=== PATIENT | male | born 1995 | race Caucasian/White ===

== ENCOUNTER 2018-10-23 20:49 | Emergency (ER) | payer MEDICAID ==
[2018-10-23 21:18] VITALS: O2SAT 98
[2018-10-23 22:22] LABS: Appearance CLEAR (CLEAR); Bilirubin NEGATIVE (NEGATIVE); Blood NEGATIVE Ery/ul (0-5); Glucose NEGATIVE (NEGATIVE); Ketones NEGATIVE (NEGATIVE); Leukocyte Esterase NEGATIVE (NEGATIVE); Mucus SLIGHT /HPF (NEGATIVE); Nitrite NEGATIVE (NEGATIVE); Protein,Urine Dip NEGATIVE (Negative); Urobilinogen NEGATIVE mg/dL (0-1)
[2018-10-23 22:35] LABS: Amphetamine,Urine NEGATIVE (NEGATIVE); Barbiturate,Urine NEGATIVE (NEGATIVE); Benzodiazepine,Urine NEGATIVE (NEGATIVE); Cocaine,Urine NEGATIVE (NEGATIVE); Methadone,Urine NEGATIVE (NEGATIVE); Opiate,Urine NEGATIVE (NEGATIVE); PCP,Urine NEGATIVE (NEGATIVE); THC,Urine NEGATIVE (NEGATIVE)
--- NOTE | 2018-10-23 22:37 | ERPHSYRPT ---
- History of Present Illness Time Seen by Provider: 10/23/18 21:30 Source: patient Exam Limitations: no limitations Patient Subjective Stated Complaint: Pt states he went to a house around 1300 today to work on it and was not aware there was black mold present. He states he was in the house for about 1 1/2 hours. After exiting the house he felt short of breath. He went to work at 1700 and started having blurry vision. Feels like his eyes keep tearing up. Chills. 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 Ambulated to room with assist of 1. Respirations easy and non-labored. Lung sounds diminished. Pt unable to undress himself, states he is very weak. Pupils equal and reactive to light. Unable to follow my finger with his eyes although he states he can see it, nystagmus present Physician History: 22 y/o white male presents with multiple complaints after brief exposure to black mold. sx include dizziness, blurred vision, achiness "all over", soa. pt states exposed approx 2 to 3 oclock this afternoon. by 5pm he began having these sx. 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 Timing/Duration: today Severity: mild Character of Deficits: vision problems Deficits: no difficulties Baseline/Normal Cognition: alert oriented x 3 Current Cognition: alert oriented x 3 Associated Symptoms: vision changes, headache - Review of Systems Constitutional: Fever Eyes: No Symptoms Ears, Nose, & Throat: No Symptoms Respiratory: Dyspnea Cardiac: No Symptoms Abdominal/Gastrointestinal: No Symptoms Genitourinary Symptoms: No Symptoms Musculoskeletal: No Symptoms Skin: No Symptoms Neurological: Dizziness, Headache Psychological: No Symptoms Endocrine: No Symptoms Hematologic/Lymphatic: No Symptoms Immunological/Allergic: No Symptoms All Other Systems: Reviewed and Negative - Past Medical History Pertinent Past Medical History: Yes Neurological History: No Pertinent History ENT History: No Pertinent History Cardiac History: No Pertinent History Respiratory History: No Pertinent History Endocrine Medical History: No Pertinent History Musculoskeletal History: No Pertinent History GI Medical History: No Pertinent History History: No Pertinent History Psycho-Social History: No Pertinent History Male Reproductive Disorders: No Pertinent History Other Medical History: pt states he is unable to remember his past medical history but knows there is a history - Past Surgical History Neuro Surgical History: No Pertinent History Cardiac: No Pertinent History Respiratory: No Pertinent History Gastrointestinal: No Pertinent History Genitourinary: No Pertinent History Musculoskeletal: No Pertinent History Male Surgical History: No Pertinent History Other Surgical History: unable to remember - Social History Smoking Status: Current every day smoker Exposure to second hand smoke: Yes Drug Use: none Patient Lives Alone: No - Nursing Vital Signs Nursing Vital Signs: Initial Vital Signs Temperature 100.5 F 10/23/18 21:06 Pulse Rate 88 10/23/18 21:06 Respiratory Rate 18 10/23/18 21:06 Blood Pressure 137/79 10/23/18 21:06 O2 Sat by Pulse Oximetry 98 10/23/18 21:06 Pain Scale Pain Intensity 8 - [place] Coma Scale Best Eye Response ([place]): (4) open spontaneously Best Verbal Response ([place]): (5) oriented Best Motor Response ([place]): (6) obeys commands [place] Total: 15 - Physical Exam General Appearance: mild distress, alert, anxiety Eye Exam: bilateral eye: normal inspection, PERRL, EOMI, vision changes Ears, Nose, Throat Exam: normal ENT inspection, moist mucous membranes Neck Exam: normal inspection, non-tender, supple, full range of motion Respiratory: normal breath sounds, lungs clear, airway intact, No chest tenderness, No respiratory distress Gastrointestinal: soft, normal bowel sounds, No tenderness Rectal Exam: not done Back Exam: normal inspection, normal range of motion, No CVA tenderness, No vertebral tenderness Extremity Exam: normal inspection, normal range of motion, 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 Exam: normal hearing, normal speech, PERRL, tongue midline Coordination/Gait: normal finger to nose, normal gait, normal cerebellar function Skin Exam: normal color, warm, dry SpO2 Interpretation: normal SpO2: 98 O2 Delivery: Room Air - Course Nursing assessment & vital signs reviewed: Yes Ordered Tests: Active Orders 24 hr Category Date Time Status Clean Catch Urine Specimen STAT Care 10/23/18 21:55 Active IV Insertion STAT Care 10/23/18 21:55 Active CHEST 1 VIEW (PORTABLE) Stat Exams 10/23/18 21:57 Taken HEAD WITHOUT CONTRAST [CT] Stat Exams 10/23/18 21:57 Taken BLOOD CULTURE Stat Lab 10/23/18 22:35 Received CBC W DIFF Stat Lab 10/23/18 22:25 Completed CMP Stat Lab 10/23/18 22:25 Completed Lactic Acid Stat Lab 10/23/18 22:35 Completed UA W/RFX UR CULTURE Stat Lab 10/23/18 22:00 Completed Urine Triage Profile Stat Lab 10/23/18 22:00 Completed Medication Summary Discontinued Medications Generic Name Dose Route Start Last Admin Trade Name Yessica PRN Reason Stop Dose Admin Hydrocodone Bitart/Acetaminophen 1 tab 10/23/18 23:51 10/23/18 23:54 Merom 5/325 Mg PO 10/23/18 23:52 1 tab STAT ONE Administration Sodium Chloride 1,000 mls @ 999 mls/hr 10/23/18 21:55 10/23/18 23:31 Sodium Chloride 0.9% 1000 Ml IV 10/23/18 22:55 Infused .Q1H1M STA Infusion Sodium Chloride Confirm 10/23/18 22:47 Sodium Chloride 0.9% 1000 Ml Administered 10/23/18 22:48 Dose 1,000 mls @ ud .ROUTE .STK-MED ONE Lab/Rad Data: Laboratory Result Diagrams 10/23/18 22:25 10/23/18 22:25 Laboratory Results 10/23/18 10/23/18 10/23/18 Range/Units 22:35 22:25 22:25 WBC 4.7 (4.0-10.5) K/mm3 RBC 4.52 (4.1-5.6) M/mm3 Hgb 13.5 (12.5-18.0) gm/dl Hct 41.1 L (42-50) % MCV 90.9 (78-100) fl MCH 29.9 (26-32) pg MCHC 32.8 (32-36) g/dl RDW 12.7 (11.5-14.0) % Plt Count 198 (150-450) K/mm3 MPV 9.3 (6-9.5) fl Gran % 77.2 H (36.0-66.0) % Eos # (Auto) 0.02 (0-0.5) Absolute Lymphs (auto) 0.62 L (1.0-4.6) Absolute Monos (auto) 0.42 (0.0-1.3) Lymphocytes % 13.1 L (24.0-44.0) % Monocytes % 8.9 (0.0-12.0) % Eosinophils % 0.4 (0.00-5.0) % Basophils % 0.4 (0.0-0.4) % Absolute Granulocytes 3.66 (1.4-6.9) Basophils # 0.02 (0-0.4) Sodium 139 (137-145) mmol/L Potassium 4.1 (3.5-5.1) mmol/L Chloride 100 (98-107) mmol/L Carbon Dioxide 28 (22-30) mmol/L Anion Gap 14.2 (5-15) MEQ/L BUN 13 (9-20) mg/dL Creatinine 0.81 (0.66-1.25) mg/dL Estimated GFR > 60.0 ML/MIN Glucose 93 (74-106) mg/dL Lactic Acid 1.2 (0.4-2.0) Calcium 9.4 (8.4-10.2) mg/dL Total Bilirubin 0.50 (0.2-1.3) mg/dL AST 22 (17-59) U/L ALT 15 (0-50) U/L Alkaline Phosphatase 46 (38-126) U/L Serum Total Protein 8.0 (6.3-8.2) g/dL Albumin 4.4 (3.5-5.0) g/dL Urine Color (YELLOW) Urine Appearance (CLEAR) Urine pH (5-6) Ur Specific [place] (1.005-1.025) Urine Protein (Negative) Urine Ketones (NEGATIVE) Urine Blood (0-5) Leroy/ul Urine Nitrite (NEGATIVE) Urine Bilirubin (NEGATIVE) Urine Urobilinogen (0-1) mg/dL Ur Leukocyte Esterase (NEGATIVE) Urine WBC (Auto) (0-5) /HPF Urine RBC (Auto) (0-2) /HPF U Epithel Cells (Auto) (FEW) /HPF Urine Bacteria (Auto) (NEGATIVE) /HPF Urine Mucus (Auto) (NEGATIVE) /HPF Urine Culture Reflexed (NO) Urine Glucose (NEGATIVE) mg/dL Urine Opiates Level (NEGATIVE) Ur Methadone (NEGATIVE) Urine Barbiturates (NEGATIVE) Ur Phencyclidine (PCP) (NEGATIVE) Urine Amphetamine (NEGATIVE) U Benzodiazepine Level (NEGATIVE) Urine Cocaine (NEGATIVE) Urine Marijuana (THC) (NEGATIVE) 10/23/18 10/23/18 Range/Units 22:00 22:00 WBC (4.0-10.5) K/mm3 RBC (4.1-5.6) M/mm3 Hgb (12.5-18.0) gm/dl Hct (42-50) % MCV (78-100) fl MCH (26-32) pg MCHC (32-36) g/dl RDW (11.5-14.0) % Plt Count (150-450) K/mm3 MPV (6-9.5) fl Gran % (36.0-66.0) % Eos # (Auto) (0-0.5) Absolute Lymphs (auto) (1.0-4.6) Absolute Monos (auto) (0.0-1.3) Lymphocytes % (24.0-44.0) % Monocytes % (0.0-12.0) % Eosinophils % (0.00-5.0) % Basophils % (0.0-0.4) % Absolute Granulocytes (1.4-6.9) Basophils # (0-0.4) Sodium (137-145) mmol/L Potassium (3.5-5.1) mmol/L Chloride (98-107) mmol/L Carbon Dioxide (22-30) mmol/L Anion Gap (5-15) MEQ/L BUN (9-20) mg/dL Creatinine (0.66-1.25) mg/dL Estimated GFR ML/MIN Glucose (74-106) mg/dL Lactic Acid (0.4-2.0) Calcium (8.4-10.2) mg/dL Total Bilirubin (0.2-1.3) mg/dL AST (17-59) U/L ALT (0-50) U/L Alkaline Phosphatase (38-126) U/L Serum Total Protein (6.3-8.2) g/dL Albumin (3.5-5.0) g/dL Urine Color YELLOW (YELLOW) Urine Appearance CLEAR (CLEAR) Urine pH 6.0 (5-6) Ur Specific [place] 1.020 (1.005-1.025) Urine Protein NEGATIVE (Negative) Urine Ketones NEGATIVE (NEGATIVE) Urine Blood NEGATIVE (0-5) Leroy/ul Urine Nitrite NEGATIVE (NEGATIVE) Urine Bilirubin NEGATIVE (NEGATIVE) Urine Urobilinogen NEGATIVE (0-1) mg/dL Ur Leukocyte Esterase NEGATIVE (NEGATIVE) Urine WBC (Auto) NONE (0-5) /HPF Urine RBC (Auto) NONE (0-2) /HPF U Epithel Cells (Auto) NONE (FEW) /HPF Urine Bacteria (Auto) NONE (NEGATIVE) /HPF Urine Mucus (Auto) SLIGHT (NEGATIVE) /HPF Urine Culture Reflexed NO (NO) Urine Glucose NEGATIVE (NEGATIVE) mg/dL Urine Opiates Level NEGATIVE (NEGATIVE) Ur Methadone NEGATIVE (NEGATIVE) Urine Barbiturates NEGATIVE (NEGATIVE) Ur Phencyclidine (PCP) NEGATIVE (NEGATIVE) Urine Amphetamine NEGATIVE (NEGATIVE) U Benzodiazepine Level NEGATIVE (NEGATIVE) Urine Cocaine NEGATIVE (NEGATIVE) Urine Marijuana (THC) NEGATIVE (NEGATIVE) - Progress Progress: improved, pain not gone completely, re-examined Progress Note: 10/23/18 23:52 ct head-no acute intraabd abnormality. Counseled pt/family regarding: lab results, diagnosis, need for follow-up, rad results - Departure Departure Disposition: Home Clinical Impression: Exposure to chemical inhalation, Headache Condition: Stable Critical Care Time: No Referrals: DOCTOR,NO FAMILY [Primary Care Provider] - Additional Instructions: drink plenty of fluids. follow up with primary doctor for further management
[2018-10-23 22:44] LABS: BASOPHIL % 0.4 % (0.0-0.4); Basophil (Absolute #) 0.02 (0-0.4); Eosinophil % 0.4 % (0.00-5.0); Eosinophil (Absolute #) 0.02 (0-0.5); Granulocyte Absolute (ANC) 3.66 (1.4-6.9); Granulocytes % 77.2 % (36.0-66.0); Hematocrit 41.1 % (42-50); Hemoglobin 13.5 gm/dl (12.5-18.0); Lymphocyte (Absolute #) 0.62 (1.0-4.6); Lymphocytes % 13.1 % (24.0-44.0); Mean Cell Volume 90.9 fl (78-100); Mean Corpuscular Hemoglobin 29.9 pg (26-32); Mean Corpuscular Hgb Concent. 32.8 g/dl (32-36); Mean Platelet Volume 9.3 fl (6-9.5); Monocyte (Absolute #) 0.42 (0.0-1.3); Monocytes % 8.9 % (0.0-12.0); Platelet Count 198 K/mm3 (150-450); Red Blood Count 4.52 M/mm3 (4.1-5.6); Red Cell Distribution Width 12.7 % (11.5-14.0); White Blood Count 4.7 K/mm3 (4.0-10.5)
[2018-10-23] MEDS ORDERED: Sodium Chloride 0.9% 1000 ML 1,000 ML ONE (22:47)
[2018-10-23] MEDS: Sodium Chloride 0.9% 1000 ML 1,000 ML IV STA (22:51)
[2018-10-23 22:57] LABS: ALBUMIN 4.4 g/dL (3.5-5.0); ALKALINE PHOSPHATASE 46 U/L (38-126); ANION GAP 14.2 MEQ/L (5-15); BLOOD UREA NITROGEN 13 mg/dL (9-20); CHLORIDE 100 mmol/L (98-107); Calcium 9.4 mg/dL (8.4-10.2); Carbon Dioxide 28 mmol/L (22-30); Creatinine 1 0.81 mg/dL (0.66-1.25); Glucose 93 mg/dL (74-106); Potassium 4.1 mmol/L (3.5-5.1); SGOT/AST 22 U/L (17-59); SGPT/ALT 15 U/L (0-50); SODIUM 139 mmol/L (137-145)
[2018-10-23] MEDS ORDERED: NORCO 5/325 MG ONE (23:53)
[2018-10-23] MEDS: NORCO 5/325 MG PO ONE (23:54)
[2018-10-24] MEDS ORDERED: MOTRIN 600 MG ONE (00:16)
[2018-10-24] MEDS: MOTRIN 600 MG PO ONE (00:24)
[2018-10-24 00:43] VITALS: BP 132/72; PULSE 82
--- NOTE | 2018-10-24 08:58 | XRAY ---
Indication: Fever, short of breath, weakness, and blurred vision. Multiple contiguous axial images obtained through the head without contrast. Comparison: None Normal appearing brain parenchyma, ventricles, and bony calvarium. Visualized paranasal sinuses and mastoid air cells are clear. Impression: Normal CT head without contrast exam. Comment: Preliminary interpretation was made by [facility]. No discrepancy. CT DI 69.79
--- NOTE | 2018-10-24 08:58 | XRAY ---
Indication: Fever, short of breath, weakness, and blurred vision. Comparison: None Portable chest demonstrates normal heart, lungs, and bony thorax.
== END 2018-10-24 00:40 | disposition home or self-care (01) ==
LOC: ED 20:49
DX: Z77.098 Contact with and (suspected) exposure to other hazardous, chiefly nonmedicinal, chemicals (principal); R51 Headache
CPT/HCPCS: 36000; 36415; 70450; 71045; 80053; 80307; 81001; 83605; 85025; 87040; 96360; 99284; A9270-GY